=== PATIENT | male | born 1985 | race Asian ===

== ENCOUNTER 2018-09-23 10:02 | Emergency (ER) | payer MEDICAID ==
[~2018-09-23] VITALS: Ht 180.3 cm; Wt 105.2 kg
[2018-09-23 10:12] VITALS: Ht 180.3 cm; Wt 105.2 kg
[2018-09-23 13:46] VITALS: BP 161/99
== END 2018-09-23 15:00 | disposition home or self-care (01) ==
LOC: ED 10:02
DX: S43.084A Other dislocation of right shoulder joint, initial encounter (principal); T71.161A Asphyxiation due to hanging, accidental, initial encounter; Y93.02 Activity, running; Y92.89 Other specified places as the place of occurrence of the external cause; Y99.8 Other external cause status
CPT/HCPCS: G0500; J1885; J2405; J3010; J3490